=== PATIENT | female | born 1970 | race Caucasian/White ===

== ENCOUNTER 2019-07-29 15:19 | Emergency (ER) | payer OTHER ==
[~2019-07-29] VITALS: Ht 162.6 cm; Wt 62.4 kg
[2019-07-29] MEDS ORDERED: SODIUM CHLORIDE FLUSH 10ML SYR IVF ONE (16:00)
[2019-07-29] MEDS ORDERED: ONDANSETRON 2MG/ML, 2ML IVPush ONE (16:00)
[2019-07-29] MEDS ORDERED: SODIUM CHLORIDE 0.9% 1,000ML IVBOLUS ONE (16:00)
[2019-07-29] MEDS ORDERED: MORPHINE SULFATE 4 MG/ML, 1ML IVPush ONE (16:00)
--- NOTE | 2019-07-29 16:07 | NUR ---
PIV STARTED, LABS DRAWN.
[2019-07-29] MEDS ORDERED: MORPHINE SULFATE 4 MG/ML, 1ML ONE (16:12)
[2019-07-29] MEDS ORDERED: ONDANSETRON 2MG/ML, 2ML ONE (16:12)
[2019-07-29 16:27] LABS: ANION GAP 16 mmol/L (5-15); CALCIUM 9.1 mg/dL (8.5-10.1); CHLORIDE 99 mmol/L (98-107); CREATININE 0.78 mg/dL (0.55-1.02)
[2019-07-29 16:28] LABS: ALANINE AMINOTRANSFERASE 180 U/L (12-78); ALBUMIN 4.4 g/dL (3.4-5.0)
[2019-07-29 16:30] LABS: ALKALINE PHOSPHATASE 114 U/L (45-117); BILIRUBIN,TOTAL 1.1 mg/dL (0.2-1.0); TOTAL PROTEIN 7.9 g/dL (6.4-8.2)
[2019-07-29 16:40] LABS: BASOPHILS # (AUTO) 0.03 x10^3/uL (0-0.1); BASOPHILS % (AUTO) 1 % (0-1); EOSINOPHILS # (AUTO) 0.05 x10^3/uL (0-0.4); EOSINOPHILS % (AUTO) 1 % (1-7); LYMPHOCYTES # (AUTO) 1.38 x10^3/uL (1-3.4); LYMPHOCYTES % (AUTO) 26 % (22-44); MD NO; MEAN CORPUSCULAR HGB CONC 33.8 g/dL (32.4-35.8); MEAN CORPUSCULAR VOLUME 106.5 fL (80-100); MEAN PLATELET VOLUME 7.5 fL (7.4-10.4); MONOCYTES # (AUTO) 0.27 x10^3/uL (0.2-0.8); MONOCYTES % (AUTO) 5 % (2-9); NEUTROPHILS # (AUTO) 3.68 x10^3/uL (1.8-6.8); NEUTROPHILS % (AUTO) 68 % (42-75); PLATELET COUNT 177 x10^3/uL (130-400); RED CELL DISTRIBUTION WIDTH 13.8 % (9.6-15.2)
[2019-07-29 16:42] VITALS: BP 130/81
--- NOTE | 2019-07-29 17:12 | NUR ---
Patient given discharge instructions and they have confirmed that they understand the instructions. Patient ambulatory with steady gait.
== END 2019-07-29 17:22 | disposition home or self-care (01) ==
LOC: ED 17:10
DX: S09.90XA Unspecified injury of head, initial encounter (principal); I10 Essential (primary) hypertension; E86.0 Dehydration; W01.0XXA Fall on same level from slipping, tripping and stumbling without subsequent striking against object, initial encounter; Y93.K1 Activity, walking an animal; Y92.89 Other specified places as the place of occurrence of the external cause; Y99.8 Other external cause status
CPT/HCPCS: 36415; 70450; 80053; 83735; 85025; 93005; 96361; 96374; 96375; 99284; J2270; J2405; J7030